=== PATIENT | female | born 1935 | race Caucasian/White ===

== ENCOUNTER → 2019-01-11 | Outpatient (CLI) | payer MEDICARE ==
[~2019-01-11] MED LIST: AMLO10 PO; ATOR20 PO; Glimepiride2 MG PO; LOSA25 PO; METF500 PO; METO50 PO; VALS80 PO
[2019-01-13 14:29] LABS: Stool Occult Bld Immuno 1 Negative (NEGATIVE)
== END | disposition home or self-care (01) ==
LOC: LAB 16:00 → LAB SHORT 16:00
PROVIDERS: Nurse Practitioner Family
DX: Z12.11 Encounter for screening for malignant neoplasm of colon (principal)
CPT/HCPCS: G0328

== ENCOUNTER 2019-07-17 16:39 | Inpatient (IN) | payer MEDICARE ==
[~2019-07-17] VITALS: Ht 157.5 cm; Wt 52.8 kg
[2019-07-17] MEDS ORDERED: Isosorbide Mono30 MG PO (16:51)
[2019-07-17] MEDS ORDERED: OMEP20ER PO ×2 (16:51→20:51)
[2019-07-17] MEDS ORDERED: LOSA50 PO (16:51)
[2019-07-17] MEDS ORDERED: CARV3.125 PO (16:52)
[2019-07-17] MEDS ORDERED: GABA100 PO (16:52)
[2019-07-17] MEDS ORDERED: METF500 PO (16:52)
[2019-07-17] MEDS ORDERED: AMLO5 PO (16:53)
[2019-07-17 18:44] LABS: BASOPHILS ABSOLUTE AUTO 0.05 K/mm3 (0.00-0.23); BASOPHILS PERCENT AUTO 0 % (0-2); EOSINOPHILS PERCENT AUTO 1 % (0-6); Hematocrit 27.3 % (33.0-51.0); Hemoglobin 8.5 g/dL (11.5-16.0); IMMATURE GRAN ABSOLUTE AUTO 0.16 K/mm3 (0.00-0.10); IMMATURE GRAN PERCENT AUTO 1 % (0-1); LYMPHOCYTES ABSOLUTE AUTO 2.43 K/mm3 (0.84-5.20); LYMPHOCYTES PERCENT AUTO 14 % (21-46); MONOCYTES ABSOLUTE AUTO 1.38 K/mm3 (0.16-1.47); MONOCYTES PERCENT AUTO 8 % (4-13); Mean Corpuscular HGB 26.5 pg (26.0-34.0); Mean Corpuscular HGB Conc 31.1 g/dL (31.5-36.5); Mean Corpuscular Volume 85 fL (80-100); NEUTROPHILS ABSOLUTE AUTO 12.92 K/mm3 (1.96-9.15); NEUTROPHILS PERCENT AUTO 76 % (41-73); Platelet Count 556 K/mm3 (150-400); RDW Coefficient Variation 13.2 % (11.7-14.2); RDW Standard Deviation 41.3 fL (35.1-46.3); Red Blood Cell Count 3.21 M/mm3 (3.80-5.20); White Blood Cell Count 17.04 K/mm3 (4.00-11.30)
[2019-07-17 18:58] LABS: International Normalized Ratio 1.04; Prothrombin Time Results 11.1 Sec (9.7-11.5)
[2019-07-17 19:01] LABS: Albumin, Blood 2.7 g/dL (3.4-5.0); Albumin/Globulin Ratio 0.5 (0.8-1.8); Bilirubin, Total 0.2 mg/dL (0.1-1.0); Bun/Creatinine Ratio 21.1 (12.0-20.0); Calcium, Blood 9.1 mg/dL (8.5-10.1); Creatinine, Blood 0.95 mg/dL (0.40-1.00); Potassium, Blood 3.8 mmol/L (3.5-5.5); Total Protein, Blood 7.7 g/dL (6.4-8.2)
[2019-07-18 05:28] LABS: BASOPHILS ABSOLUTE AUTO 0.06 K/mm3 (0.00-0.23); BASOPHILS PERCENT AUTO 0 % (0-2); EOSINOPHILS ABSOLUTE AUTO 0.16 K/mm3 (0.00-0.68); EOSINOPHILS PERCENT AUTO 1 % (0-6); Hematocrit 28.5 % (33.0-51.0); Hemoglobin 8.8 g/dL (11.5-16.0); IMMATURE GRAN ABSOLUTE AUTO 0.16 K/mm3 (0.00-0.10); IMMATURE GRAN PERCENT AUTO 1 % (0-1); LYMPHOCYTES ABSOLUTE AUTO 2.31 K/mm3 (0.84-5.20); LYMPHOCYTES PERCENT AUTO 15 % (21-46); MONOCYTES ABSOLUTE AUTO 1.29 K/mm3 (0.16-1.47); MONOCYTES PERCENT AUTO 9 % (4-13); Mean Corpuscular HGB 26.3 pg (26.0-34.0); Mean Corpuscular HGB Conc 30.9 g/dL (31.5-36.5); Mean Corpuscular Volume 85 fL (80-100); Mean Platelet Volume 9.4 fL (9.1-12.4); NEUTROPHILS ABSOLUTE AUTO 11.14 K/mm3 (1.96-9.15); NEUTROPHILS PERCENT AUTO 74 % (41-73); Platelet Count 608 K/mm3 (150-400); RDW Coefficient Variation 13.2 % (11.7-14.2); Red Blood Cell Count 3.35 M/mm3 (3.80-5.20); White Blood Cell Count 15.12 K/mm3 (4.00-11.30)
--- NOTE | 2019-07-18 05:32 | NUR ---
TRANSFER AND SUMMARY: REPORT RECIEVED FROM ALBERTO TOLLIVER RN AND PT T/F TO ROOM 310 AT 20[facility] [email or web address] SHE IS A/OX4, INDEPENDENT IN ROOM AND CALLS APPROPRIATELY FOR ASSISTANCE. SHE WAS ORIENTED TO ROOM AND CALL SYSTEM, REFUSED SCD'S AND TAKES MEDS W/O DIFFICULTY. IV ABX RECIEVED PRIOR TO ADMISSION FOR PROBABLE PNM AND SPO2 WNL ON RA, LS CLEAR T/O. NS COMMENCED AT 75 ML/HR AND SHE WAS OOB T/O NOCTE TO VOID. PT REPORTED NO FURTHER DIARRHEA AND DENIED PAIN, NAUSEA, SOB AND DYSPNEA T/O NOCTE. SHE STATED FEELING "MUCH BETTER" AND ADMITTED TO "STRENGTH IMPROVING". PT HAD RECENT PET SCAN AND DENIED ANY ABNORMALITIES OR LUNG MASSES. SHE HAS CURRENT LYMPHOMA BUT ISN'T RECIEVING TX AT THIS TIME. NO ACUTE CHANGES, VSS/AFEBRILE. WCTM AND REPORT TO YANDEL RN.
[2019-07-18 05:54] LABS: Albumin, Blood 2.7 g/dL (3.4-5.0); Albumin/Globulin Ratio 0.5 (0.8-1.8); Bilirubin, Total 0.3 mg/dL (0.1-1.0); Bun/Creatinine Ratio 14.5 (12.0-20.0); Calcium, Blood 9.1 mg/dL (8.5-10.1); Creatinine, Blood 0.96 mg/dL (0.40-1.00); Globulin, Blood 5.2 g/dL (2.2-4.0); Potassium, Blood 3.4 mmol/L (3.5-5.5); Total Protein, Blood 7.9 g/dL (6.4-8.2)
--- NOTE | 2019-07-18 18:05 | NUR ---
PT IS TOLERATING FOOD. SHE HAS REQUESTED "REAL FOOD" AND HAS TOLERATED IT WELL. SHE HAS BEEN WALKING THE HALLS AND HAS HAD NO COMPLAINTS OF PAIN OR N/V. CBGS WNL. NO ACUTE CHANGES.
--- NOTE | 2019-07-19 00:57 | NUR ---
IVF DC'D PER . PT EATING AND DRINKING WELL W/POSSIBLE D/C TODAY.
--- NOTE | 2019-07-19 04:54 | NUR ---
SUMMARY: PT IS A/OX4, SPECIFIES NEEDS AND INDEPENDENT IN ROOM. IVF WERE SL D/T PT EATING AND DRINKING WELL W/POSSIBLE D/C TODAY. SHE'S DENIED PAIN, SOB, ABDO DISCOMFORT AND N/V/D. DRY NAGGING COUGH PERSISTED THOUGH SO TESSALON PERLS WERE PROVIDED PRN FOR GOOD EFFECT. PT SLEPT MAJORITY OF NOCTE AND WAS ONLY UP TO USE TOILET. BREAKFAST TRAY ORDERED PER PT REQUEST. IV ABX TO BE RECIEVED ON DAY SHIFT. NO ACUTE CHANGES, VSS/AFEBRILE. WCTM AND REPORT TO DAY RN.
[2019-07-19 05:20] LABS: BASOPHILS ABSOLUTE AUTO 0.05 K/mm3 (0.00-0.23); BASOPHILS PERCENT AUTO 0 % (0-2); EOSINOPHILS ABSOLUTE AUTO 0.17 K/mm3 (0.00-0.68); EOSINOPHILS PERCENT AUTO 2 % (0-6); Hematocrit 25.3 % (33.0-51.0); Hemoglobin 7.9 g/dL (11.5-16.0); IMMATURE GRAN ABSOLUTE AUTO 0.14 K/mm3 (0.00-0.10); IMMATURE GRAN PERCENT AUTO 1 % (0-1); LYMPHOCYTES ABSOLUTE AUTO 2.34 K/mm3 (0.84-5.20); LYMPHOCYTES PERCENT AUTO 20 % (21-46); MONOCYTES PERCENT AUTO 10 % (4-13); Mean Corpuscular HGB 26.3 pg (26.0-34.0); Mean Corpuscular HGB Conc 31.2 g/dL (31.5-36.5); Mean Corpuscular Volume 84 fL (80-100); Mean Platelet Volume 9.1 fL (9.1-12.4); NEUTROPHILS PERCENT AUTO 67 % (41-73); Platelet Count 631 K/mm3 (150-400); RDW Coefficient Variation 13.2 % (11.7-14.2); RDW Standard Deviation 41.1 fL (35.1-46.3)
[2019-07-19 05:43] LABS: Bun/Creatinine Ratio 13.9 (12.0-20.0); Calcium, Blood 8.8 mg/dL (8.5-10.1); Creatinine, Blood 1.01 mg/dL (0.40-1.00); Potassium, Blood 3.9 mmol/L (3.5-5.5)
[2019-07-19] MEDS ORDERED: GUAI600T33 PO (14:00)
[2019-07-19] MEDS ORDERED: Tessalon200 MG PO (14:00)
[2019-07-19] MEDS ORDERED: ASCO500 PO (14:01)
[2019-07-19] MEDS ORDERED: VISBIOME 112.51 EACH PO (14:01)
[2019-07-19] MEDS ORDERED: AZIT500 PO (14:02)
[2019-07-19] MEDS ORDERED: CEFU500T30 PO (14:02)
[2019-07-19] MEDS ORDERED: DOCU100 PO (14:03)
[2019-07-19] MEDS ORDERED: FERSU300 PO (14:03)
[2019-07-19] MEDS ORDERED: MIRALAX17 GM PO (14:04)
--- NOTE | 2019-07-19 15:09 | NUR ---
1450 REMOVED PTS IV PRIOR TO DC. MEDS FAXED TO PHARMACY OF CHOICE. NURSE WENT OVER MEDS WITH PT EDUCATING HER ON HER ANTIBIOTICS. FAMILY WAS NOTIFIED OF DISCHARGE AND PICKED HER UP. FOLLOW UP APPOINTMENTS MADE BY STAFF. PT WAS WHEELED DOWN BY STAFF.
== END 2019-07-19 14:56 | disposition home or self-care (01) | DRG 195 ==
LOC: ER 16:39 → MEDS 20:33
PROVIDERS: Nurse Practitioner Acute Care; ADMIT Internal Medicine
DX: J18.9 Pneumonia, unspecified organism (principal); I25.10 Atherosclerotic heart disease of native coronary artery without angina pectoris; Z95.5 Presence of coronary angioplasty implant and graft; I12.9 Hypertensive chronic kidney disease with stage 1 through stage 4 chronic kidney disease, or unspecified chronic kidney disease; E11.22 Type 2 diabetes mellitus with diabetic chronic kidney disease; N18.3 Chronic kidney disease, stage 3 (moderate); Z79.4 Long term (current) use of insulin; D50.9 Iron deficiency anemia, unspecified; Z86.73 Personal history of transient ischemic attack (TIA), and cerebral infarction without residual deficits; Z85.72 Personal history of non-Hodgkin lymphomas
CPT/HCPCS: 36415; 76705; 80048; 80053; 82947; 83690; 84145; 85025; 85610; 99285-25; A9270; A9270-GY; J0456; J0696; J1650; J7030; J7050

== ENCOUNTER → 2021-07-23 | Outpatient (CLI) | payer MEDICARE ==
[~2021-07-23] MED LIST changes: +AMLO5 PO; +ASCO500 PO; +AZIT500 PO; +CARV3.125 PO; +CEFU500T30 PO; +DOCU100 PO; +FERSU300 PO; +GABA100 PO; +GUAI600T33 PO; +Isosorbide Mono30 MG PO; +LOSA50 PO; +MIRALAX17 GM PO; +OMEP20ER PO; +Tessalon200 MG PO; +VISBIOME 112.51 EACH PO
[2021-07-24 09:39] LABS: Stool Occult Bld Immuno 1 Negative (NEGATIVE)
== END | disposition home or self-care (01) ==
LOC: LAB SHORT 06:00
PROVIDERS: Student in an Organized Health Care Education/Training Program
DX: Z12.11 Encounter for screening for malignant neoplasm of colon (principal); E11.9 Type 2 diabetes mellitus without complications
CPT/HCPCS: G0328

== ENCOUNTER 2022-01-01 14:07 | Emergency (ER) | payer MEDICARE ==
[~2022-01-01] VITALS: Ht 160 cm; Wt 59.0 kg
[2022-01-01 15:27] LABS: BASOPHILS ABSOLUTE AUTO 0.09 K/mm3 (0.00-0.23); BASOPHILS PERCENT AUTO 1 % (0-2); EOSINOPHILS ABSOLUTE AUTO 0.22 K/mm3 (0.00-0.68); EOSINOPHILS PERCENT AUTO 3 % (0-6); Hematocrit 31.6 % (33.0-51.0); Hemoglobin 10.8 g/dL (11.5-16.0); IMMATURE GRAN ABSOLUTE AUTO 0.03 K/mm3 (0.00-0.10); IMMATURE GRAN PERCENT AUTO 0 % (0-1); LYMPHOCYTES ABSOLUTE AUTO 3.41 K/mm3 (0.84-5.20); LYMPHOCYTES PERCENT AUTO 40 % (21-46); MONOCYTES ABSOLUTE AUTO 0.96 K/mm3 (0.16-1.47); MONOCYTES PERCENT AUTO 11 % (4-13); Mean Corpuscular HGB 30.9 pg (26.0-34.0); Mean Corpuscular HGB Conc 34.2 g/dL (31.5-36.5); Mean Corpuscular Volume 91 fL (80-100); Mean Platelet Volume 9.7 fL (9.1-12.4); NEUTROPHILS ABSOLUTE AUTO 3.75 K/mm3 (1.96-9.15); NEUTROPHILS PERCENT AUTO 44 % (41-73); Platelet Count 378 K/mm3 (150-400); RDW Coefficient Variation 12.4 % (11.7-14.2); RDW Standard Deviation 40.7 fL (35.1-46.3); Red Blood Cell Count 3.49 M/mm3 (3.80-5.20); White Blood Cell Count 8.46 K/mm3 (4.00-11.30)
[2022-01-01 15:30] LABS: Source, Urine Clean Catch
[2022-01-01 15:37] LABS: Appearance, Urine Clear (Clear); Bilirubin, Urine Neg (Neg); Blood, Urine Neg (Neg); Color, Urine Yellow (P-Yellow); Glucose Qualitative, Urine Neg (Neg); Ketones, Urine Neg (Neg); Leukocyte Esterase, Urine 1+ (Neg); Nitrite, Urine Neg (Neg); Protein, Urine 2+ (Neg); Specific Gravity, Urine 1.015 (1.003-1.022); Urobilinogen, Urine NORM (Normal)
[2022-01-01 15:42] LABS: Albumin, Blood 3.6 g/dL (3.4-5.0); Albumin/Globulin Ratio 0.9 (0.8-1.8); Bilirubin, Total 0.3 mg/dL (0.1-1.0); Bun/Creatinine Ratio 17.3 (12.0-20.0); Calcium, Blood 9.2 mg/dL (8.5-10.1); Creatinine, Blood 1.33 mg/dL (0.40-1.00); Globulin, Blood 4.2 g/dL (2.2-4.0); Potassium, Blood 4.6 mmol/L (3.5-5.5); Total Protein, Blood 7.8 g/dL (6.4-8.2)
[2022-01-01 15:55] LABS: Bacteria Few /hpf; Red Blood Cells, Urine 0-2 /hpf (0-2); Squamous Epithelial Cells Few /hpf (Few)
== END 2022-01-01 18:17 | disposition home or self-care (01) ==
LOC: ER 14:07
PROVIDERS: Physician Assistant
DX: R10.9 Unspecified abdominal pain (principal); I10 Essential (primary) hypertension; I25.10 Atherosclerotic heart disease of native coronary artery without angina pectoris; E11.9 Type 2 diabetes mellitus without complications; Z86.73 Personal history of transient ischemic attack (TIA), and cerebral infarction without residual deficits; Z87.891 Personal history of nicotine dependence; Z79.84 Long term (current) use of oral hypoglycemic drugs; Z79.899 Other long term (current) drug therapy
CPT/HCPCS: 74177; 80053; 81001; 83690; 85025; J1885; Q9967

== ENCOUNTER 2023-07-04 13:02 | Emergency (ER) | payer MEDICARE ==
[~2023-07-04] VITALS: Ht 157.5 cm; Wt 61.2 kg
[2023-07-04 14:09] LABS: Hematocrit 30.9 % (33.0-51.0); Hemoglobin 10.3 g/dL (11.5-16.0); Mean Corpuscular HGB 30.6 pg (26.0-34.0); Mean Corpuscular HGB Conc 33.3 g/dL (31.5-36.5); Mean Corpuscular Volume 92 fL (80-100); Mean Platelet Volume 9.9 fL (9.1-12.4); Platelet Count 345 K/mm3 (150-400); RDW Coefficient Variation 12.5 % (11.7-14.2); RDW Standard Deviation 41.8 fL (35.1-46.3); Red Blood Cell Count 3.37 M/mm3 (3.80-5.20); White Blood Cell Count 8.28 K/mm3 (4.00-11.30)
[2023-07-04 14:29] LABS: BASOPHILS ABSOLUTE MAN 0.16 K/mm3 (0.00-0.23); BASOPHILS PERCENT MAN 2 % (0-2); EOSINOPHILS ABSOLUTE MAN 0.08 K/mm3 (0.00-0.68); EOSINOPHILS PERCENT MAN 1 % (0-6); LYMPHOCYTES % ATYPICAL MANUAL 2 % (0-0); LYMPHOCYTES ABSOLUTE MAN 3.22 K/mm3 (0.84-5.20); LYMPHOCYTES PERCENT MAN 37 % (21-46); MONOCYTES ABSOLUTE MAN 0.66 K/mm3 (0.16-1.47); MONOCYTES PERCENT MAN 8 % (4-13); NEUTROPHILS ABSOLUTE MAN 4.14 K/mm3 (1.96-9.15); SEG NEUTROPHILS PERCENT MAN 50 % (41-73); TOTAL CELLS COUNTED 100
[2023-07-04 14:49] VITALS: BP 178/88
[2023-07-04 14:50] LABS: Albumin, Blood 3.6 g/dL (3.4-5.0); Albumin/Globulin Ratio 0.8 (0.8-1.8); Bilirubin, Total 0.3 mg/dL (0.1-1.0); Bun/Creatinine Ratio 25.6 (12.0-20.0); Creatinine, Blood 1.33 mg/dL (0.40-1.00); Globulin, Blood 4.3 g/dL (2.2-4.0); Potassium, Blood 4.2 mmol/L (3.5-5.5); Total Protein, Blood 7.9 g/dL (6.4-8.2)
[2023-07-04] MEDS ORDERED: MECL25 PO (15:54)
== END 2023-07-04 16:21 | disposition home or self-care (01) ==
LOC: ER 13:02
PROVIDERS: Student in an Organized Health Care Education/Training Program
DX: R42 Dizziness and giddiness (principal); D64.9 Anemia, unspecified; I10 Essential (primary) hypertension; I25.2 Old myocardial infarction; E11.9 Type 2 diabetes mellitus without complications; I25.10 Atherosclerotic heart disease of native coronary artery without angina pectoris; Z79.899 Other long term (current) drug therapy; Z87.891 Personal history of nicotine dependence
CPT/HCPCS: 80053; 85025